=== PATIENT | male | born 2000 | race Two or more races ===

== ENCOUNTER 2024-08-09 13:28 | Emergency (ER) | payer OTHER ==
[2024-08-09] MEDS ORDERED: METHYLPREDNISOLONE 125 MG INJ ONE (13:53)
[2024-08-09] MEDS ORDERED: FAMOTIDINE 20 MG/2 ML VIAL IV ONE (13:53)
--- NOTE | 2024-08-09 14:36 | EDPHYS ---
Physician Documentation [facility] Name: Ferdinand Lofton Age: 23 yrs Sex: Male : 2000 Arrival Date: 08/09/2024 Time: 13:28 Bed 4 Private MD: ED Physician Bailee Rodriguez HPI: 08/09 14:03 This 23 yrs old Male presents to ER via EMS with complaints of Allergic Reaction. kb 14:03 Pt is a 23 year old male who presents for allergic reaction to nuts. States he has an kb allergy to peanuts and today he ate a macadamia nut cookie which caused him to feel an abnormal sensation to lips and like his throat was swelling. Pt took 2 benadryl and went to medical which brought him here. States he normally has abd pain once the nut gets to his stomach and that is what is happening now. Reports lip sensation and swelling to throat has resolved. Denies shortness of breath, rash. Historical: - Allergies: 13:40 Nuts; ph - PMHx: 13:40 Asthma; ph - Immunization history:: Adult Immunizations up to date. - Infectious Disease History:: Denies. - Social history:: Smoking status: Patient reports the use of cigarette tobacco products, denies chronic smoking, but will smoke occasionally. ROS: 14:05 Constitutional: As per HPI kb Exam: 14:05 Constitutional: This is a well developed, well nourished patient who is awake, alert, kb and in no acute distress. Head/Face: Normocephalic, atraumatic. ENT: Moist Mucous membranes Cardiovascular: Regular rate Respiratory: Respirations even and unlabored. No increased work of breathing. Talking in full sentences Abdomen/GI: Soft, non-tender. No distention Skin: Warm, dry with normal turgor. Normal color. MS/ Extremity: Pulses equal, no cyanosis. Neurovascular intact. Full, normal range of motion. Neuro: Awake and alert, GCS 15, oriented to person, place, time, and situation. Vital Signs: 13:37 BP 130 / 66; Pulse 71; Resp 18; Temp 97.9; Pulse Ox 99% on R/A; Weight 71.67 kg; Height ph 5 ft. 5 in. ; 14:34 BP 125 / 74; Pulse 69; Resp 18; Pulse Ox 100% on R/A; ph 13:37 Body Mass Index 26.29 (71.67 kg, 165.1 cm) ph MDM: 13:36 Medical Screening Exam initiated kb 14:05 Differential diagnosis: anaphylaxis, angioedema, urticaria. Data reviewed: vital signs, kb nurses notes. Historians other than the Patient: EMS: [facility]. 14:34 Counseling: I had a detailed discussion with the patient and/or guardian regarding the kb historical points, exam findings, and any diagnostic results supporting the discharge/admit diagnosis, the need for outpatient follow up, a family practitioner, to return to the emergency department if symptoms worsen or persist or if there are any questions or concerns that arise at home. ED course: Pt states he is still feeling ok. Reports he is still having abd pain, but normally he has to let that pass naturally when this happens. States he is ready to go home. . Administered Medications: 14:00 Drug: NS 0.9% IV 1000 ml IV at 1000 ml once; to be given as a bolus over 60 minutes ph Route: IV; Rate: 1000 ml; Site: left antecubital; 14:43 Follow up: Response: No adverse reaction; IV Status: Completed infusion; IV Intake: ph 1000ml 14:00 Drug: MethylPrednisoLONE IVP 125 mg IVP once Route: IVP; Site: left antecubital; ph 14:42 Follow up: Response: No adverse reaction ph 14:00 Drug: Famotidine IVP 20 mg IVP once; dilute with 10 mL 0.9% NaCl; give over 2 minutes ph Route: IVP; Site: left antecubital; 14:42 Follow up: Response: No adverse reaction ph Disposition Summary: 08/09/24 14:35 Discharge Ordered Notes: Location: Home kb Condition: Stable kb Diagnosis - Allergy to peanuts - macadamia nuts kb Followup: kb - With: Emergency Department - When: As needed - Reason: Worsening of condition Followup: kb - With: Private Physician - When: 2 - 3 days - Reason: Recheck today's complaints, Continuance of care, Re-evaluation by your physician Discharge Instructions: - Discharge Summary Sheet kb - Food Allergy, [id number] kb Forms: - Medication Reconciliation Form kb - Antibiotic Education kb - Prescription Opioid Use kb - Patient Portal Instructions kb - Leadership Thank You Letter kb Signatures: Michelle Stephens FNP-C FNP-Kwan Karla Figueroa, RN RN ph
--- NOTE | 2024-08-09 14:36 | ER ---
Nurse's Notes [facility] Name: Ferdinand Lofton Age: 23 yrs Sex: Male : 2000 Arrival Date: 08/09/2024 Time: 13:28 Bed 4 Private MD: Diagnosis: Allergy to peanuts-macadamia nuts Presentation: 08/09 13:37 Chief complaint: EMS states: Hx of nut allergy, accidentally ate a cookie containing ph macadamia nuts, has epi pen but did not use, denies SOB or chest pain, only complaint is stomach discomfort, did take 50mg Benadryl. Coronavirus screen: Vaccine status: Patient reports receiving the 2nd dose of the covid vaccine. Ebola Screen: No symptoms or risks identified at this time. Onset: The symptoms/episode began/occurred today. Anaphylaxis evaluation, no signs or symptoms of anaphylaxis were noted. Initial Sepsis Screen: Does the patient meet any 2 criteria? No. Patient's initial sepsis screen is negative. Does the patient have a suspected source of infection? No. Patient's initial sepsis screen is negative. Risk Assessment: Do you want to hurt yourself or someone else? Patient reports no desire to harm self or others. Onset of symptoms was August 09, 2024. 13:37 Method Of Arrival: EMS: [facility] 13:37 Acuity: JOSE 3 ph 13:37 Acuity: JOSE 3 ph Triage Assessment: 13:42 General: Appears in no apparent distress. comfortable, well groomed, Behavior is calm, ph cooperative. Pain: Complains of pain in abdomen. Neuro: Level of Consciousness is awake, alert, obeys commands, Oriented to person, place, time, situation. Cardiovascular: Capillary refill < 3 seconds in bilateral fingers. Respiratory: Airway is patent Respiratory effort is even, unlabored, Respiratory pattern is regular, symmetrical, Breath sounds are clear bilaterally. GI: Reports upper abdominal pain, Patient currently denies nausea, vomiting. Derm: Skin is pink, warm \T\ dry. Historical: - Allergies: 13:40 Nuts; ph - PMHx: 13:40 Asthma; ph - Immunization history:: Adult Immunizations up to date. - Infectious Disease History:: Denies. - Social history:: Smoking status: Patient reports the use of cigarette tobacco products, denies chronic smoking, but will smoke occasionally. Screenin:41 [facility] ED Fall Risk Assessment (Adult) Confusion or Disorientation. [facility] Fall ph Risk Assessment (Adult) History of falling in the last 3 months, including since admission No falls in past 3 months (0 pts) Confusion or Disorientation No (0 pts) Intoxicated or Sedated No (0 pts) Impaired Gait No (0 pts) Mobility Assist Device Used No (0 pt) Altered Elimination No (0 pt) Score/Fall Risk Level 0 - 2 = Low Risk Oriented to surroundings, Maintained a safe environment, Hourly rounding (assess needs \T\ fall precautionary measures) done. Abuse screen: Denies threats or abuse. Denies injuries from another. Nutritional screening: No deficits noted. Tuberculosis screening: No symptoms or risk factors identified. Assessment: 13:43 General: SEE TRIAGE ASSESSMENT. ph Vital Signs: 13:37 BP 130 / 66; Pulse 71; Resp 18; Temp 97.9; Pulse Ox 99% on R/A; Weight 71.67 kg; Height ph 5 ft. 5 in. ; 14:34 BP 125 / 74; Pulse 69; Resp 18; Pulse Ox 100% on R/A; ph 13:37 Body Mass Index 26.29 (71.67 kg, 165.1 cm) ph ED Course: 13:35 Patient arrived in ED. ph 13:36 Michelle Stephens FNP-C is [facility]. kb 13:36 Bailee Rodriguez MD is Attending Physician. kb 13:40 Triage completed. ph 13:41 Arm band placed on Patient placed in an exam room, on a stretcher, on pulse oximetry. ph 13:42 Patient has correct armband on for positive identification. Bed in low position. Call ph light in reach. Side rails up X 1. Pulse ox on. NIBP on. Door closed. Noise minimized. Pillow given. 13:45 Maintain EMS IV. Dressing intact. Good blood return noted. Site clean \T\ dry. Gauge \T\ ph site: 20 LAC. Flushed with 10 mL NS. 14:01 Pradeep Rascon, RN is Primary Nurse. bp 14:43 No provider procedures requiring assistance completed. IV discontinued, intact, ph bleeding controlled, No redness/swelling at site. Pressure dressing applied. Administered Medications: 14:00 Drug: NS 0.9% IV 1000 ml IV at 1000 ml once; to be given as a bolus over 60 minutes ph Route: IV; Rate: 1000 ml; Site: left antecubital; 14:43 Follow up: Response: No adverse reaction; IV Status: Completed infusion; IV Intake: ph 1000ml 14:00 Drug: MethylPrednisoLONE IVP 125 mg IVP once Route: IVP; Site: left antecubital; ph 14:42 Follow up: Response: No adverse reaction ph 14:00 Drug: Famotidine IVP 20 mg IVP once; dilute with 10 mL 0.9% NaCl; give over 2 minutes ph Route: IVP; Site: left antecubital; 14:42 Follow up: Response: No adverse reaction ph Medication: 13:42 VIS not applicable for this client. ph Intake: 14:43 IV: 1000ml; Total: 1000ml. ph Outcome: 14:35 Discharge ordered by MD. kern 14:43 Discharged to home ambulatory, ph 14:43 Condition: good 14:43 Discharge instructions given to patient, Instructed on discharge instructions, follow up and referral plans. Demonstrated understanding of instructions, follow-up care, 14:44 Patient left the ED. ph Signatures: Michelle Stephens, TRAFFIC ASSISTANT-C TRAFFIC ASSISTANT-Karla Terrell, RN RN ph Pradeep Rascon, RN RN bp
[2024-08-09 14:56] VITALS: TEMP 97.9
[2024-08-09 14:57] VITALS: BP 125/74; O2SAT 100
== END 2024-08-09 14:44 | disposition home or self-care (01) ==
LOC: ER 13:28
DX: R10.9 Unspecified abdominal pain (principal); R20.2 Paresthesia of skin; Z91.018 Allergy to other foods; F17.210 Nicotine dependence, cigarettes, uncomplicated
CPT/HCPCS: J2919